=== PATIENT | female | born 1965 | race American Indian/Alaskan Native ===

== ENCOUNTER → 2016-10-19 10:55 | Outpatient (CLI) | payer OTHER ==
--- NOTE | 2016-10-19 12:39 | Fluoroscopy Report ---
AIR CONTRAST BARIUM ENEMA HISTORY: Screening for colon cancer. FINDINGS: Base Engineer film of the abdomen demonstrates a normal bowel gas pattern. 19 fluoroscopic images and 11 radiographic images were obtained. The colon is normal caliber, mucosal pattern and distensibility throughout. There is no evidence for mass, mucosal defect or polyposis. Normal appendix. Normal emptying of the colon. IMPRESSION: Normal exam.
== END | disposition home or self-care (01) ==
LOC: FLUORO 10:55
PROVIDERS: ATTEND Internal Medicine Gastroenterology
DX: Z12.11 Encounter for screening for malignant neoplasm of colon (principal)
CPT/HCPCS: 74280

== ENCOUNTER 2018-02-06 11:31 | Outpatient (CLI) | payer OTHER ==
--- NOTE | 2018-02-06 13:08 | Mammography Report ---
BONE DENSITY STUDY: Osteoporosis screening. DEFINITIONS: BMD = Bone Mineral Density T-score = BMD related to mean peak bone mass of young adult (mean expressed in Standard Deviation) Z-score = Age matched BMD expressed in SD World Health Organization (WHO) Diagnostic Criteria Normal T-score > -1 SD Osteopenia T-score between -1 and -2.4 SD Osteoporosis T-score -2.5 SD or below FINDINGS: The weighted average BMD of lumbar spine L1-L4 is 1.055 with a T-score of -0.9. The weighted average BMD of the left hip is 0.938 with a T-score of -0.6. The BMD of the femoral neck is 0.673 with a T. value score of -2.0. IMPRESSION: The patient's average T-score is diagnostic for normal bone density and low relative risk for fracture. NOTE: BMD is not the only risk factor for fracture; also consider factors such as the patient's age, risk of falling, previous osteoporotic fracture, family history of osteoporotic fractures, current smoker, and low body weight. Olsen's triangle is a region of interest in femur, predominantly of trabecular bone. It is not a true anatomic site, and [facility] does not recommend its use clinically.
== END 2018-02-06 11:32 | disposition home or self-care (01) ==
LOC: SPVWC 11:31
PROVIDERS: ATTEND Obstetrics & Gynecology
DX: Z13.820 Encounter for screening for osteoporosis (principal); I10 Essential (primary) hypertension; F17.210 Nicotine dependence, cigarettes, uncomplicated; Z88.1 Allergy status to other antibiotic agents
CPT/HCPCS: 77080